=== PATIENT | male | born 1985 | race Two or more races ===

== ENCOUNTER 2017-11-30 14:34 | Emergency (ER) | payer OTHER ==
--- NOTE | 2017-11-30 15:19 | EDM.PDOC ---
ED HPI GENERAL MEDICAL PROBLEM - General Chief Complaint: Back Pain or Injury Stated Complaint: RT RIB PAIN LEFT LEG PAIN Time Seen by Provider: 11/30/17 14:34 Source of Information: Reports: Patient History Limitations: Reports: No Limitations - History of Present Illness INITIAL COMMENTS - FREE TEXT/NARRATIVE: 32 y.o.w.m came to the ed 3 days after he fell down the stairs and hit his r lower chest and left ankle. Pain was improving somewhat since then. No N/V/D or any other acute medical issues. Pt saw blood in his urine one time on Wednesday. BP 121/79 pulse 78 RR 18 pulse ox 100% on RA Onset Date: 11/28/17 Onset Time: 08:00 Duration: Day(s):, Intermittent, Improving Location: Reports: Back, Lower Extremity, Left Quality: Reports: Ache Severity: Moderate Improves with: Reports: Rest Worsens with: Reports: Movement Context: Reports: Trauma Associated Symptoms: Reports: Other (blood in urine, improving) Treatments [employer] MACHINE [employer]CH [employer]: Reports: NSAIDS R posterior back & L ankle Pain Score (Numeric/FACES): 8 - Related Data Allergies Allergy/AdvReac Type Severity Reaction Status Date / Time No Known Allergies Allergy Verified 11/30/17 14:53 Home Meds: Home Meds Hydrocodone/Acetaminophen [Vicodin 5-300 mg Tablet] 1 each PO Q4HR PRN #16 tablet 11/30/17 [Rx] Past Medical History - Past Health History Medical/Surgical History: Denies Medical/Surgical History Respiratory History: Reports: Asthma Gastrointestinal History: Reports: GERD Musculoskeletal History: Reports: Fracture Other Musculoskeletal History: fx R thumb - Infectious Disease History Infectious Disease History: Reports: Chicken Pox - Past Surgical History HEENT Surgical History: Reports: Oral Surgery Social & Family History - Family History Family Medical History: Noncontributory - Tobacco Use Smoking Status *Q: Former Smoker Years of Tobacco use: 10 Used Tobacco, but Quit: Yes Month Tobacco Last Used: 2012 - Caffeine Use Caffeine Use: Reports: Energy Drinks, Soda, Tea - Alcohol Use Days Per Week of Alcohol Use: 3 Number of Drinks Per Day: 2 Total Drinks Per Week: 6 - Recreational Drug Use Recreational Drug Use: No ED ROS GENERAL - Review of Systems Review Of Systems: See Below Constitutional: Reports: No Symptoms HEENT: Reports: No Symptoms Respiratory: Reports: No Symptoms Cardiovascular: Reports: No Symptoms Endocrine: Reports: No Symptoms GI/Abdominal: Reports: No Symptoms : Reports: No Symptoms Musculoskeletal: Reports: Back Pain, Other (left ankle pain) Skin: Reports: No Symptoms Neurological: Reports: No Symptoms Psychiatric: Reports: No Symptoms Hematologic/Lymphatic: Reports: No Symptoms Immunologic: Reports: No Symptoms ED EXAM,LOWER BACK PAIN/INJURY - Physical Exam Exam: See Below Exam Limited By: No Limitations General Appearance: Alert, WD/WN, Mild Distress Eye Exam: Bilateral Eye: Normal Inspection Ears: Normal External Exam, Normal Canal Nose: Normal Inspection, Normal Mucosa, No Blood Throat/Mouth: Normal Inspection, Normal Lips, Normal Teeth Head: Atraumatic, Normocephalic Neck: Normal Inspection, Supple Respiratory/Chest: No Respiratory Distress, Lungs Clear, Normal Breath Sounds, Other (tender righy lat CW) Cardiovascular: Normal Peripheral Pulses GI/Abdominal: Normal Bowel Sounds, Soft, Non-Tender, No Organomegaly (Male) Exam: Deferred Rectal (Males) Exam: Deferred Back Exam: Normal Inspection, Full Range of Motion Extremities: Normal Inspection, Normal Range of Motion Neurological: Alert, Normal Mood/Affect, Normal Dorsiflexion, CN II-XII Intact, Normal Plantar Flexion, Abnormal Gait (deu to left ankle pain) Psychiatric: Normal Affect, Normal Mood Skin Exam: Warm, Dry, Intact, Normal Color, No Rash Lymphatic: No Adenopathy Course - Vital Signs Text/Narrative:: 32 y.o.w.m came to the ed 3 days after he fell down the stairs and hit his r lower chest and left ankle. Pain was improving somewhat since then. No N/V/D or any other acute medical issues. Pt saw blood in his urine one time on Wednesday. BP 121/79 pulse 78 RR 18 pulse ox 100% on RA PE: WNWD W M with r ch wall pains and left ankle pain, no deformity. ImaginG; Left ankle: NAD, R ribseries: NAD, official report is pending Impression: R ankle sprain, R chest wall sprain, microscopic hematuria Tx: Toradol, Pt refused CT abd/pelvis as this time. Reexam: Improved Plan: D/C with instructions Last Recorded V/S: Last Vital Signs Temp 36.9 C 11/30/17 14:45 Pulse 92 11/30/17 16:34 Resp 14 11/30/17 16:34 BP 111/80 11/30/17 16:34 Pulse Ox 100 11/30/17 16:34 - Orders/Labs/Meds Orders: Active Orders 24 hr Category Date Time Status Ankle Min 3V Lt [CR] Stat Exams 11/30/17 15:35 Taken Ribs 2V wo Chest Rt [CR] Stat Exams 11/30/17 15:16 Taken Ice Therapy [OM.PC] Routine Oth 11/30/17 15:16 Ordered Labs: Laboratory Tests 11/30/17 Range/Units 15:55 Urine Color Yellow (YELLOW) Urine Appearance Clear (CLEAR) Urine pH 8.0 H (5.0-6.5) Ur Specific [place] 1.015 (1.010-1.025) Urine Protein Negative (NEGATIVE) mg/dL Urine Glucose (UA) Normal (NEGATIVE) mg/dL Urine Ketones Negative (NEGATIVE) mg/dL Urine Occult Blood Moderate H (NEGATIVE) Urine Nitrite Negative (NEGATIVE) Urine Bilirubin Negative (NEGATIVE) Urine Urobilinogen Normal (NEGATIVE) mg/dL Ur Leukocyte Esterase Negative (NEGATIVE) Urine RBC 5-10 (0) Urine WBC 0-5 (0) Ur Squamous Epith Cells Rare (NS,R,O) Urine Bacteria Occasional H (NS) Meds: Medications Discontinued Medications Generic Name Dose Route Start Last Admin Trade Name Freq PRN Reason Stop Dose Admin Ketorolac Tromethamine 60 mg 11/30/17 15:16 11/30/17 15:26 Toradol IM 11/30/17 15:17 60 mg ONETIME ONE Administration Departure - Departure Time of Disposition: 16:31 Disposition: Home, Self-Care 01 Condition: Good Clinical Impression: Fall (on) (from) other stairs and steps, initial encounter, Back pain due to injury Hematuria Qualifiers: Hematuria type: other microscopic Qualified Code(s): R31.29 - Other microscopic hematuria - Discharge Information Prescriptions: Hydrocodone/Acetaminophen [Vicodin 5-300 mg Tablet] 1 each PO Q4HR PRN #16 tablet PRN Reason: severe pain Referrals: PCP,None [Primary Care Provider] - Forms: ED Department Discharge Additional Instructions: Ice to the affected areas, Motrin 600 mg every 6 hours with food, Vicodine for severe pain. Please f/u, come back if your symptoms get worse acutely - My Orders Last 24 Hours: My Active Orders 11/30/17 15:16 Ribs 2V wo Chest Rt [CR] Stat Ice Therapy [OM.PC] Routine 11/30/17 15:35 Ankle Min 3V Lt [CR] Stat - Assessment/Plan Last 24 Hours: My Active Orders 11/30/17 15:16 Ribs 2V wo Chest Rt [CR] Stat Ice Therapy [OM.PC] Routine 11/30/17 15:35 Ankle Min 3V Lt [CR] Stat
[2017-11-30] MEDS: Ketorolac 60 MG/2 ML SDV IM ONE (15:26)
--- NOTE | 2017-12-01 08:46 | CR ---
INDICATION: Fell backwards on stairs, area of pain lateral anterior due to rolled ankle. LEFT ANKLE: Three views of the left ankle revealed no evidence of an acute fracture, dislocation, or other significant bone or joint abnormality. IMPRESSION: Normal left ankle. MTDNadeem
--- NOTE | 2017-12-01 08:48 | CR ---
INDICATION: Fell backwards on stairs, area of pain marked lower right ribs. RIGHT RIBS WITHOUT CHEST: Four views of the right ribs were obtained and revealed the shoulder area to appear intact, as well as the clavicle. No displaced fracture sites were identified. BB enamorado the site of pain, which lies at the lower-most right ribs. No bony abnormality was suggested. IMPRESSION: No displaced rib fractures identified. If an occult fracture site is suspected clinically, re-examination in 10-14 days may be helpful. PORTIAD
== END 2017-11-30 16:36 | disposition home or self-care (01) ==
LOC: FB.ED 14:34
DX: S93.401A Sprain of unspecified ligament of right ankle, initial encounter (principal); S29.011A Strain of muscle and tendon of front wall of thorax, initial encounter; R31.29 Other microscopic hematuria; K21.9 Gastro-esophageal reflux disease without esophagitis; W10.9XXA Fall (on) (from) unspecified stairs and steps, initial encounter; Z87.891 Personal history of nicotine dependence
CPT/HCPCS: 71100; 73610; 81001; 96372; 99283; J1885

== ENCOUNTER 2019-09-20 21:10 | Emergency (ER) | payer SELFPAY ==
--- NOTE | 2019-09-21 01:43 | ER ---
DATE SEEN: 09/20/2019 CHIEF COMPLAINT: Arm pain. HISTORY OF PRESENT ILLNESS: A 33-year-old male complaining of right arm pain started around elbow and goes all the way to the pinky and ring fingers causing numbness. In addition, he has had pain from the neck as well and these symptoms are going on for at least 1-1/2 month, but they have gotten worse in the last 2 weeks. He has been seen at [facility], treated with among other things, gabapentin, Lyrica, hydrocodone, diazepam; none of them is helping. REVIEW OF SYSTEMS: No chest pain or shortness of breath. No headaches. No nausea or vomiting. PAST MEDICAL HISTORY: He was seen here for back pain and leg injury. PHYSICAL EXAMINATION: VITAL SIGNS: Today, his blood pressure and vital signs are normal. MENTAL STATUS: Alert. MUSCULOSKELETAL: No obvious swelling. There is tenderness on the extensor aspect of the right elbow. Full range of motion, however, normal pulses peripherally. He has full range of motion of the elbow and shoulder. IMPRESSION: Neuropathy, ulnar nerve. PLAN: NSAIDs p.r.n., occupational therapy, nerve conduction study, perhaps MRI and a referral to Surgery. This is recommended by first establishing care locally and then getting these referrals and tests done. I do not feel that medicine is the answer. I did review from his record and he had just used 90 tablets 2 weeks ago of gabapentin and hydrocodone. /[id number] IZAIAH/SONIA
== END 2019-09-20 22:00 | disposition home or self-care (01) ==
LOC: FB.ED 21:10
DX: G62.9 Polyneuropathy, unspecified (principal)
CPT/HCPCS: 99282; 99283